=== PATIENT | male | born 2000 | race Caucasian/White ===

== ENCOUNTER 2019-05-04 11:52 | Emergency (ER) | payer SELFPAY ==
[2019-05-04 12:08] VITALS: BP 134/67; PULSE 97; RESP 18; TEMP 37; O2SAT 99; BMI 21.6
--- NOTE | 2019-05-04 12:16 | ED_ITS ---
Entered by Selma Lacey, acting as scribe for May 04, 2019 11:52 HPI - Dental/Oral General: Chief complaint: Dental/Oral Stated complaint: Tooth pain Time Seen by Provider: 05/04/19 12:15 Source: patient and family Mode of arrival: ambulatory Limitations: no limitations History of Present Illness: HPI Narrative: 19 yo male presents with swelling to R side of jaw. pt states this morning he woke up and he had swelling. pt has had dental abscess and pain in his mouth lower right jaw. pt denies any other symptoms. MD Complaint: tooth pain Onset (ago): day(s) (today) Duration: constant Severity: moderate Relieving factors: nothing Exacerbating factors: nothing Associated symptoms: Reports no associated symptoms Treatment prior to arrival: none PFSH ED PFSH: Statuses (acute, chronic, etc) shown below reflect problem list status as previously entered and may not be historically accurate Social History Smoking and tobacco status: current every day smoker Procedures Abscess I/D Site: oral Side (if applicable): right Local Anesthetic: bupivacaine 0.5% Amount of anesthesia used (mL): 10 Technique: incised with #11 blade Packing used?: none Course Vital Signs: Vital signs: Vital Signs Temperature 98.6 F 05/04/19 12:08 Pulse Rate 97 05/04/19 12:08 Respiratory Rate 18 05/04/19 12:08 Blood Pressure 134/67 05/04/19 12:08 Pulse Oximetry 99 05/04/19 12:08 MDM - Dental/Oral MDM Narrative: Medical decision making narrative: Patient presents here with dental abscess. I incised and drained the abscess and patient placed on antibiotic and is to follow-up with a dentist as soon as possible. He had no trismus and is stable for discharge. Discharge Plan Discharge Patient Disposition: Home, Self-Care Clinical Impression: Dental abscess Condition: Stable Prescriptions: New Keflex 500 mg capsule 500 mg PO Q6H 7 Days Qty: 28 RF: 0 EC-Naprosyn 500 mg tablet,delayed release (DR/EC) 500 mg PO BID PRN (Reason: pain) Qty: 20 RF: 0 Discharge Orders: Discharge Order (Routine); Ordered 05/04/19 Ordered By: Miguelina Klein Referrals: Zeferino Enriquez MD [Primary Care Provider] - Discharge Diet: Advance as tolerated Discharge Activity: Resume usual activity Patient Instructions: Dental Abscess (ED) Activity Restrictions/Additional Instructions: follow up with dentist in 3-5 days Coding Level of Care Code ED [employer]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
[2019-05-04 12:37] VITALS: BP 134/67; PULSE 97; RESP 17; TEMP 37; O2SAT 99
== END 2019-05-04 12:42 | disposition home or self-care (01) ==
PROVIDERS: Emergency Provider Emergency Medicine; PCP Family Medicine
DX: K04.7 Periapical abscess without sinus (principal); F17.210 Nicotine dependence, cigarettes, uncomplicated
CPT/HCPCS: 40800; 99281

== ENCOUNTER → 2020-02-24 15:00 | Outpatient (BNVA) | payer OTHER, SELFPAY | PROVIDERS: PCP Family Medicine; Visit Provider Nurse Practitioner Family | DX: Z20.828 Contact with and (suspected) exposure to other viral communicable diseases (principal); J06.9 Acute upper respiratory infection, unspecified; R43.0 Anosmia | CPT/HCPCS: 87635 ==